=== PATIENT | female | born 1975 | race Caucasian/White ===

== ENCOUNTER 2019-01-17 08:41 | Emergency (ER) ==
[2019-01-17 08:46] VITALS: BP 159/96; TEMP 98.3; BMI 38.0
[2019-01-17] MEDS ORDERED: SODIUM CHLORIDE 1,000 ML IV STA (09:06)
--- NOTE | 2019-01-17 09:06 | ED.PDOC ---
General ED Provider: Dr. GARRET CURRY Chief Complaint: Bite Stated Complaint: Believes she's having an allergic reaction to some type of insect bite to her lt forearm. Feels like her throat tightening. Ambulation with no observalbe distress Time Seen by Physician: 08:45 Mode of Arrival: Walk-In Information Source: Patient Exam Limitations: No limitations Nursing and Triage Documentation Reviewed and Agree: Yes Does patient meet sepsis criteria?: No System Inflammatory Response Syndrome: Not Applicable Sepsis Protocol: For patient's 13 years and over: Temp is 96.8 and below OR 101 and greater Pulse >90 BPM Resp >20/minute Acutely Altered Mental Status Are patient's symptoms suggestive of a new infection, such as: -Pneumonia -Skin, Soft Tissue -Endocarditis -UTI -Bone, Joint Infection -Implantable Device -Acute Abdominal Infection -Wound Infection -Meningitis -Blood Stream Catheter Infection -Unknown Environmental Complaint Exam - Allergic Reaction Complaint/Exam Onset/Duration: 2 hrs Symptoms Are: Still present Timing: Constant Initial Severity: Mild Current Severity: Moderate Location: Discrete (Lt forearm) Character: Present: Swelling (minimal mid mandibulr), Pruritis Aggravating: Reports: None Alleviating: Reports: None Associated Signs and Symptoms: Reports: Throat tightening. Denies: Difficulty breathing, Cough, Wheezing, Chest pain, Hoarseness, Throat swelling, Rash, Abdominal pain, Diaphoresis, Lightheadedness, Syncope, Nausea, Vomiting Possible Reaction To: Reports: Insect (Whelp and bite site Lt forearm volar aspect) Diphenhydramine Prior to Arrival: No Epinephrine Auto Injector Prior to Arrival: No (Did not have it ) Respiratory Distress: None Findings: Present: Dysphagia, Hoarseness Differential Diagnoses: Anaphylaxis, Local Allergic Reaction Review of Systems - Review Of Systems Constitutional: Reports: No symptoms Eyes: Reports: No symptoms Ears, Nose, Mouth, Throat: Reports: No symptoms, Throat swelling (sensation of ant neck sub tonsillar tightness. no objective swelling . no nasal flaring ) Respiratory: Reports: No symptoms Cardiac: Reports: No symptoms GI: Reports: No symptoms : Reports: No symptoms Musculoskeletal: Reports: No symptoms Skin: Reports: No symptoms Neurological: Reports: No symptoms Endocrine: Reports: No symptoms Hematologic/Lymphatic: Reports: No symptoms All Other Systems: Reviewed and Negative Past Medical History - Past Medical History Previously Healthy: Yes Endocrine: Reports: None Cardiovascular: Reports: None Respiratory: Reports: None Hematological: Reports: None Gastrointestinal: Reports: None Genitourinary: Reports: None Neuro/Psych: Reports: None Musculoskeletal: Reports: None Cancer: Reports: None Last Menstrual Period: NONE - Surgical History General Surgical History: Reports: None - Family History Family History: Reports: None - Social History Smoking Status: Never smoker Hx Substance Use: No Alcohol Screening: None Physical Exam - Physical Exam Appearance: Obese Ill-appearing: Mild Pain Distress: None Eyes: RAMONITA, EOMI, Conjunctiva clear ENT: Ears normal, Nose normal, Oropharynx normal Neck: Supple Respiratory: Airway patent, Breath sounds clear, Breath sounds equal, Respirations nonlabored Cardiovascular: RRR, Pulses normal, No rub, No murmur GI/: Soft, Nontender, No masses, Bowel sounds normal, No Organomegaly Musculoskeletal: Normal strength, ROM intact, No edema, No calf tenderness Skin: Warm, Dry, Normal color Neurological: Sensation intact, Motor intact, Reflexes intact, Cranial nerves intact, Alert, Oriented Re-Evaluation - Re-Evaluation Time of Re-Evaluation: 11:45 Status: Improved Vital Signs Stable: Yes Appearance: NAD Lungs: Clear Skin: Warm and Dry Neuro: Alert and Oriented X3 CV: RRR Critical Care Note - Critical Care Note Total Time (mins): 60 Course - Course Hematology/Chemistry: 01/17/19 09:24 01/17/19 09:24 Orders, Labs, Meds: Lab Review 01/17/19 01/17/19 09:24 09:24 WBC 7.42 RBC 4.33 Hgb 12.9 Hct 38.5 MCV 88.9 MCH 29.8 MCHC 33.5 RDW Coeff of Vaughn 12.6 Plt Count 255 Immature Gran % (Auto) 0.4 Neut % (Auto) 49.9 Lymph % (Auto) 35.0 [place] % (Auto) 7.3 Eos % (Auto) 6.6 Baso % (Auto) 0.8 Immature Gran # (Auto) 0.0 Neut # (Auto) 3.7 Lymph # (Auto) 2.6 [place] # (Auto) 0.5 Eos # (Auto) 0.5 Baso # (Auto) 0.1 Sodium 138.5 Potassium 3.81 Chloride 107.4 H Carbon Dioxide 23.1 Anion Gap 11.81 BUN 8.6 Creatinine 0.60 Estimated GFR (MDRD) 110.00 BUN/Creatinine Ratio 14.33 Glucose 94.3 Calcium 8.64 Total Bilirubin 0.97 AST 22.3 ALT 22.7 Alkaline Phosphatase 118.5 Total Protein 6.65 Albumin 3.87 Globulin 2.78 Albumin/Globulin Ratio 1.39 Orders Category Date Time Status EKG-(ED ONLY) Stat CARDIO 01/17/19 09:11 Completed IV [ED IV/MEDIPORT/POWERPORT] .ONCE EMERGENCY 01/17/19 09:06 Active CBC W/ AUTO DIFF Stat LAB 01/17/19 09:24 Completed CMP [COMPREHENSIVE METABOLIC PANEL] Stat LAB 01/17/19 09:24 Completed RAPID STREP SCREEN [MOLECULAR GROUP A STREP] Stat LAB 01/17/19 11:10 Completed 0.9 % Sodium Chloride [Saline Flush] MEDS 01/17/19 09:06 Discontinued 1 syr IVF PRN PRN Dexamethasone 4 mg/ml Inj [Decadron 4 mg/ml Sdv] MEDS 01/17/19 09:53 Discontinued 4 mg IM ONCE STA Dexamethasone 4 mg/ml Inj [Decadron 4 mg/ml Sdv] MEDS 01/17/19 09:08 Discontinued 4 mg IVP ONCE STA Diphenhydramine Inj [Benadryl] MEDS 01/17/19 09:53 Discontinued 25 mg IM ONCE STA Diphenhydramine Inj [Benadryl] MEDS 01/17/19 09:07 Discontinued 25 mg IVP ONCE STA Famotidine Inj [Pepcid] MEDS 01/17/19 09:07 Discontinued 20 mg IVP ONCE STA Famotidine [Pepcid] MEDS 01/17/19 09:54 Discontinued 20 mg PO ONCE STA Sodium Chloride 0.9% [Sodium Chloride] 1,000 ml MEDS 01/17/19 09:06 Discontinued IV BOLUS Medications Discontinued Medications Generic Name Dose Route Start Last Admin Trade Name Freq PRN Reason Stop Dose Admin Dexamethasone Sodium Phosphate 4 mg 01/17/19 09:08 01/17/19 10:00 Decadron 4 Mg/Ml Sdv IVP 01/17/19 09:09 Not Given ONCE STA Dexamethasone Sodium Phosphate 4 mg 01/17/19 09:53 01/17/19 10:04 Decadron 4 Mg/Ml Sdv IM 01/17/19 09:54 4 mg ONCE STA Administration Diphenhydramine HCl 25 mg 01/17/19 09:07 01/17/19 09:59 Benadryl IVP 01/17/19 09:08 Not Given ONCE STA Diphenhydramine HCl 25 mg 01/17/19 09:53 01/17/19 10:06 Benadryl IM 01/17/19 09:54 25 mg ONCE STA Administration Famotidine 20 mg 01/17/19 09:07 01/17/19 10:00 Pepcid IVP 01/17/19 09:08 Not Given ONCE STA Famotidine 20 mg 01/17/19 09:54 01/17/19 10:04 Pepcid PO 01/17/19 09:55 20 mg ONCE STA Administration Sodium Chloride 1,000 mls @ 500 mls/hr 01/17/19 09:06 01/17/19 10:00 Sodium Chloride IV 01/17/19 11:05 Not Given BOLUS STA Sodium Chloride 1 syr 01/17/19 09:06 Saline Flush IVF PRN PRN To flush IV Vital Signs: Temp Pulse Resp BP Pulse Ox 01/17/19 08:42 98.3 F 72 20 159/96 H 97 Departure - Departure Time of Disposition: 11:45 Disposition: HOME SELF-CARE Discharge Problem: Throat tightness, Insect bite, Hx of bee sting allergy, Allergic reaction Instructions: Insect Bite or Sting (ED), Allergies (ED) Condition: Good Pt referred to PMD for follow-up: Yes (1 wk) IPMP verified?: No Additional Instructions: follow up with family md as scheduled--return to er if any further change or concerns Prescriptions: Diphenhydramine HCl [Benadryl] 1 mg PO Q6H PRN #20 capsule PRN Reason: allergies Allergies/Adverse Reactions: Allergies lisinopril Adverse Reaction (Verified 01/17/19 08:46) spider venom Adverse Reaction (Verified 01/17/19 08:46) tramadol Adverse Reaction (Verified 01/17/19 08:46) BEES Adverse Reaction (Uncoded 01/17/19 08:46) Home Medications: Ambulatory Orders Diphenhydramine HCl [Benadryl] 1 mg PO Q6H PRN #20 capsule 01/17/19 Disposition Discussed With: Patient, Family
[2019-01-17] MEDS ORDERED: PEPCID IVP STA (09:07)
[2019-01-17] MEDS ORDERED: BENADRYL IVP STA (09:07)
[2019-01-17] MEDS ORDERED: DECADRON 4 MG/ML SDV IVP STA (09:08)
[2019-01-17] MEDS ORDERED: DECADRON 4 MG/ML SDV IM STA (09:53)
[2019-01-17] MEDS ORDERED: BENADRYL IM STA (09:53)
[2019-01-17] MEDS ORDERED: PEPCID PO STA (09:54)
== END 2019-01-17 12:00 | disposition home or self-care (01) ==
LOC: ED 08:41
DX: T78.49XA Other allergy, initial encounter (principal); S50.862A Insect bite (nonvenomous) of left forearm, initial encounter; R09.89 Other specified symptoms and signs involving the circulatory and respiratory systems; W57.XXXA Bitten or stung by nonvenomous insect and other nonvenomous arthropods, initial encounter
CPT/HCPCS: 36415; 80053; 85025; 87651; 93005; 93010; 96372; 99283